=== PATIENT | male | born 1970 | race Caucasian/White ===

== ENCOUNTER 2025-04-04 16:38 | Emergency (ER) | payer MEDICAID ==
[~2025-04-04] VITALS: Ht 162.6 cm; Wt 71.2 kg
[2025-04-04] MEDS ORDERED: LIDOCAINE 1% INJ 50 ML MDV IJ ONE (17:42)
[2025-04-04] MEDS ORDERED: TDAP [DIPH/PERTUSSIS/TET] 0.5 ML VIAL IM ONE (17:43)
[2025-04-04] MEDS: LIDOCAINE 1% INJ 50 ML MDV IJ ONE (17:50)
[2025-04-04] MEDS: TDAP [DIPH/PERTUSSIS/TET] 0.5 ML VIAL IM ONE (17:55)
[2025-04-04] MEDS ORDERED: MUPIROCIN OINT 2% 22 GM TUBE ONE (20:40)
[2025-04-04] MEDS ORDERED: CLINDAMYCIN HCL 150 MG CAPSULE ONE (20:40)
[2025-04-04] MEDS: CLINDAMYCIN HCL 150 MG CAPSULE PO ONE (20:41)
[2025-04-04] MEDS: BACITRACIN ZINC OINT PACKET 1 EA PACKET TP ONE (20:41)
[2025-04-04] MEDS ORDERED: HYDR-3972 PO (21:36)
[2025-04-04] MEDS ORDERED: ACET-2605 PO (21:36)
[2025-04-04] MEDS ORDERED: IBUP-1490 PO (21:36)
[2025-04-04] MEDS ORDERED: CLIN300C12 PO (21:36)
[2025-04-04 21:45] VITALS: BP 128/76; TEMP 97.9; O2SAT 96
== END 2025-04-04 21:48 | disposition home or self-care (01) ==
LOC: ER 16:45
DX: S61.215A Laceration without foreign body of left ring finger without damage to nail, initial encounter (principal); E11.9 Type 2 diabetes mellitus without complications; W23.0XXA Caught, crushed, jammed, or pinched between moving objects, initial encounter; Y93.89 Activity, other specified; Y92.89 Other specified places as the place of occurrence of the external cause; Y99.8 Other external cause status
CPT/HCPCS: 12002; 73140; 99283; A6403; J3490; 90715